=== PATIENT | male | born 1940 | race Caucasian/White ===

== ENCOUNTER 2018-04-02 13:06 | Inpatient (IN) | payer MEDICARE, OTHER ==
[~2018-04-02] VITALS: Ht 175.3 cm; Wt 93.6 kg
[2018-04-02 14:19] LABS: BASOPHILS # (AUTO) 0.1 X10'3 (0-0.2); BASOPHILS % (AUTO) 0.7 % (0-1); EOSINOPHILS # (AUTO) 0.2 X10'3 (0-0.9); EOSINOPHILS % (AUTO) 1.4 % (0-6); HEMATOCRIT 46.4 % (42.0-52.0); HEMOGLOBIN 15.2 g/dl (14.0-17.9); LYMPHOCYTES # (AUTO) 2.3 X10'3 (1.1-4.8); LYMPHOCYTES % (AUTO) 13.2 % (21-51); MEAN CORPUSCULAR HEMOGLOBIN 30.4 PG (27.0-31.0); MEAN CORPUSCULAR HGB CONC 32.7 % (33.0-36.5); MEAN CORPUSCULAR VOLUME 92.9 FL (78-98); MEAN PLATELET VOLUME 7.9 FL (7.4-10.4); MONOCYTES # (AUTO) 1.2 X10'3 (0-0.9); MONOCYTES % (AUTO) 6.8 % (2-12); NEUTROPHILS # (AUTO) 13.3 X10'3 (1.8-7.7); NEUTROPHILS % (AUTO) 77.9 % (42-75); PLATELET COUNT 329 X10'3 (140-440); RED CELL DISTRIBUTION WIDTH 14.5 % (11.5-14.5); WHITE BLOOD COUNT 17.1 X10'3 (4.5-11.0)
[2018-04-02 14:25] LABS: CLARITY,URINE CLEAR (Clear); COLOR,URINE YELLOW (Yellow); GLUCOSE, URINE NEGATIVE (Neg); KETONES,URINE NEGATIVE (Neg); LEUKOCYTE ESTERASE ,URINE TRACE (Neg); NITRITES, URINE NEGATIVE (Neg); OCCULT BLOOD,URINE NEGATIVE (Neg); PROTEIN,URINE NEGATIVE (Neg); UROBILINOGEN,URINE 0.2 E.U/dL (0.2-1.0)
[2018-04-02 14:28] LABS: UA COLLECTION TYPE CLN CATCH MIDSTREAM
[2018-04-02 14:41] LABS: MUCUS STRANDS NONE SEEN /LPF (Neg); SQUAMOUS EPITHELIAL CELL,UR NONE SEEN /LPF (FEW)
[2018-04-02 14:41] LABS: PARTIAL THROMBOPLASTIN TIME 27 SECONDS (22-32); PROTHROMBIN TIME 10.3 SECONDS (9.0-12.0)
[2018-04-02 14:42] LABS: BACTERIA,URINE NONE SEEN /HPF (Neg); RBC,URINE NONE SEEN /HPF (0-2); TRANSITIONAL EPI CELLS,URINE FEW /HPF; WBC,URINE 0-4 /HPF (0-4)
[2018-04-02 14:48] LABS: ALANINE AMINOTRANSFERASE 30 U/L (12-78); ALBUMIN 3.6 G/DL (3.4-5.0); ALBUMIN/GLOBULIN RATIO 0.9 (1.1-1.5); ALKALINE PHOSPHATASE 90 IU/L (46-116); ANION GAP 12 (8-16); ASPARTATE AMINO TRANSFERASE 9 U/L (10-37); BILIRUBIN,TOTAL 0.3 MG/DL (0.1-1.0); BLOOD UREA NITROGEN 21 MG/DL (7-18); BUN/CREATININE RATIO 19.1 (5.4-32.0); CALCIUM 9.1 MG/DL (8.5-10.1); CHLORIDE 100 MMOL/L (99-107); GLUCOSE 154 MG/DL (70-104); MAGNESIUM 1.9 MG/DL (1.5-2.4); POTASSIUM 4.3 MMOL/L (3.5-5.1); SODIUM 137 MMOL/L (135-145); TOTAL PROTEIN 7.7 G/DL (6.4-8.2); eGFR 65 ML/MIN
[2018-04-02] MEDS ORDERED: aspirin 81mg tab.chew PO ONE (14:50)
[2018-04-02] MEDS ORDERED: normal saline 1000ML IV soln IVB ONE (14:50)
[2018-04-02] MEDS ORDERED: diltiazem 5mg/ml 5ml inj. IV ONE ×2 (14:50→20:55)
[2018-04-02] MEDS ORDERED: BUDE10.2 INH (15:50)
[2018-04-02] MEDS ORDERED: OMEP20TA5 PO (15:50)
[2018-04-02] MEDS ORDERED: TIOT4MIS5 INH (15:50)
[2018-04-02] MEDS ORDERED: IPRA3AMP31 IH (15:57)
[2018-04-02] MEDS ORDERED: METF750T PO (15:59)
[2018-04-02] MEDS ORDERED: ASPI81TA52 PO (15:59)
[2018-04-02] MEDS ORDERED: KEN0.1O TP (16:00)
[2018-04-02] MEDS ORDERED: magnesium hydroxide 30ml (MOM) UD suspension PO PRN (16:00)
[2018-04-02] MEDS ORDERED: ondansetron/PF 4mg/2ml inj IV PRN (16:00)
[2018-04-02] MEDS ORDERED: furosemide 20MG tablet PO ONE (16:00)
[2018-04-02] MEDS ORDERED: diltiazem CD 120mg capsule (once-daily) PO SCH (16:00)
[2018-04-02] MEDS ORDERED: acetaminophen 325mg tablet PO PRN ×2 (16:00)
[2018-04-02] MEDS ORDERED: ipratropium/albuterol 3ml nebule NEB PRN (16:30)
[2018-04-02] MEDS ORDERED: triamcinolone acet 0.1% cream 15gm TP PRN (16:30)
[2018-04-02 17:55] VITALS: BP 141/86
--- NOTE | 2018-04-02 17:55 | NUR ---
Pt arrived to floor via gurney. Pt alert and oriented, accompanied by . Vitals taken and tele monitor placed. present and belongings placed in closet. MRSA swab taken and 2RN skin check completed.
--- NOTE | 2018-04-02 18:35 | NUR ---
Patient in room PCU 3013. I have received report from Chino PAYAN and had the opportunity to ask questions and assume patient care.
--- NOTE | 2018-04-02 18:37 | NUR ---
Problems reprioritized. Patient report given, questions answered & plan of care reviewed with Aubrie PAYAN. Pt stable at time of transfer. Addendum: 04/03/18 at 1204 by Chino Carl RN Patient in room [place] [id number]. I have received report from Aubrie PAYAN and had the opportunity to ask questions and assume patient care. Please disregard first portion of the note stating that patient report was given, questions answered, etc. I received report on this patient from Aubrie PAYAN as she was the off-going RN and I was the oncoming RN.
[2018-04-02] MEDS ORDERED: non-formulary drug (Budesonide/Formoterol Fumarate (Symbicort 160-4.5 Mcg Inhaler) 2 PUFFS INH SCH (20:00)
--- NOTE | 2018-04-02 20:55 | NUR ---
MD Notification Called Dr. Mckenzie RE pt HR sustaining in the 140s. New orders received Cardizem IV 10 mg once. Will continue to monitor
[2018-04-02] MEDS: budesonide 0.5mg/2ml UD nebule IH SCH (20:59)
[2018-04-02] MEDS: ipratropium 0.5 MG/2.5ML nebule NEB SCH (20:59)
[2018-04-02] MEDS: albuterol 2.5 MG/3 ML nebule NEB SCH (20:59)
[2018-04-02 23:00] VITALS: BP 141/69
[2018-04-03] MEDS: temazepam 15mg capsule PO PRN (01:21)
[2018-04-03] MEDS: ipratropium 0.5 MG/2.5ML nebule NEB SCH ×4 (02:36→20:26)
[2018-04-03 02:40] LABS: BASOPHILS # (AUTO) 0.1 X10'3 (0-0.2); EOSINOPHILS # (AUTO) 0.2 X10'3 (0-0.9); EOSINOPHILS % (AUTO) 1.4 % (0-6); HEMATOCRIT 42.2 % (42.0-52.0); LYMPHOCYTES # (AUTO) 2.2 X10'3 (1.1-4.8); MEAN CORPUSCULAR HEMOGLOBIN 30.7 PG (27.0-31.0); MEAN CORPUSCULAR HGB CONC 33.3 % (33.0-36.5); MEAN CORPUSCULAR VOLUME 92.3 FL (78-98); MEAN PLATELET VOLUME 7.8 FL (7.4-10.4); MONOCYTES # (AUTO) 1.1 X10'3 (0-0.9); MONOCYTES % (AUTO) 7.1 % (2-12); NEUTROPHILS # (AUTO) 11.2 X10'3 (1.8-7.7); NEUTROPHILS % (AUTO) 75.5 % (42-75); PLATELET COUNT 306 X10'3 (140-440); RED BLOOD COUNT 4.57 X10'6 (4.70-6.10); WHITE BLOOD COUNT 14.8 X10'3 (4.5-11.0)
[2018-04-03 02:57] LABS: ALBUMIN 3.1 G/DL (3.4-5.0); ANION GAP 11 (8-16); BLOOD UREA NITROGEN 22 MG/DL (7-18); BUN/CREATININE RATIO 18.6 (5.4-32.0); CALCIUM 8.6 MG/DL (8.5-10.1); CHLORIDE 101 MMOL/L (99-107); CREATININE 1.18 MG/DL (0.60-1.10); GLUCOSE 186 MG/DL (70-104); POTASSIUM 3.9 MMOL/L (3.5-5.1); SODIUM 137 MMOL/L (135-145); TOTAL CARBON DIOXIDE 25.4 MMOL/L (24-32); eGFR 60 ML/MIN
[2018-04-03 03:00] VITALS: BP 121/74
--- NOTE | 2018-04-03 06:08 | NUR ---
Patient in room PCU 3013. I have received report from Aubrie PAYAN and had the opportunity to ask questions and assume patient care.
--- NOTE | 2018-04-03 06:38 | NUR ---
Problems reprioritized. Patient report given, questions answered & plan of care reviewed with Chino PAYAN.
[2018-04-03 07:00] VITALS: BP 135/100
[2018-04-03] MEDS: diltiazem CD 120mg capsule (once-daily) PO SCH ×2 (07:15→07:16)
[2018-04-03] MEDS: aspirin 81mg tablet.DR PO SCH (07:15)
[2018-04-03] MEDS: metFORMIN 500mg tablet PO SCH (07:16)
[2018-04-03] MEDS: pantoprazole 40mg Tablet.DR PO SCH (07:16)
[2018-04-03] MEDS ORDERED: aspirin 81mg tablet.DR PO SCH (08:00)
[2018-04-03] MEDS: budesonide 0.5mg/2ml UD nebule IH SCH ×2 (08:44→20:26)
[2018-04-03] MEDS: albuterol 2.5 MG/3 ML nebule NEB SCH ×4 (08:44→20:26)
[2018-04-03 11:00] VITALS: BP 133/85
[2018-04-03] MEDS: mag hydrox/Alum hydrox/simeth 30ml oral suspension PO PRN (12:33)
--- NOTE | 2018-04-03 13:12 | NUR ---
1100 SVN TX TRIAGED
--- NOTE | 2018-04-03 14:42 | NUR ---
Paged Dr. Pappas per patient and family request regarding their questions about the treatment plan. PAGER ID: [phone] MESSAGE: Chino Carl RN [phone] Robby Travis: Patient and family requesting to speak with you with questions regarding treatment plan. Thank you.
[2018-04-03 15:00] VITALS: BP 141/92
[2018-04-03] MEDS: metoprolol succinate 25mg (24-HOUR) SR. Tablet PO SCH (17:26)
--- NOTE | 2018-04-03 18:10 | NUR ---
Patient in room PCU 3013. I have received report from Eli anaya and had the opportunity to ask questions and assume patient care.
--- NOTE | 2018-04-03 18:10 | NUR ---
Problems reprioritized. Patient report given, questions answered & plan of care reviewed with Aubrie PAYAN.
[2018-04-03 19:00] VITALS: BP 134/71
[2018-04-04] MEDS: temazepam 15mg capsule PO PRN ×2 (00:15→00:55)
[2018-04-04] MEDS: mag hydrox/Alum hydrox/simeth 30ml oral suspension PO PRN (00:55)
[2018-04-04] MEDS: ipratropium 0.5 MG/2.5ML nebule NEB SCH ×2 (01:09→06:52)
[2018-04-04 03:00] VITALS: BP 110/73
--- NOTE | 2018-04-04 06:10 | NUR ---
Patient in room PCU 3013. I have received report from Aubrie PAYAN and had the opportunity to ask questions and assume patient care.
--- NOTE | 2018-04-04 06:31 | NUR ---
Problems reprioritized. Patient report given, questions answered & plan of care reviewed with Chino PAYAN.
[2018-04-04] MEDS: albuterol 2.5 MG/3 ML nebule NEB SCH ×2 (06:52→10:41)
[2018-04-04] MEDS: budesonide 0.5mg/2ml UD nebule IH SCH (06:52)
[2018-04-04 06:55] LABS: BASOPHILS # (AUTO) 0.1 X10'3 (0-0.2); BASOPHILS % (AUTO) 0.5 % (0-1); EOSINOPHILS # (AUTO) 0.3 X10'3 (0-0.9); EOSINOPHILS % (AUTO) 2.3 % (0-6); HEMATOCRIT 42.8 % (42.0-52.0); LYMPHOCYTES # (AUTO) 1.6 X10'3 (1.1-4.8); LYMPHOCYTES % (AUTO) 11.4 % (21-51); MEAN CORPUSCULAR HEMOGLOBIN 30.1 PG (27.0-31.0); MEAN CORPUSCULAR HGB CONC 32.7 % (33.0-36.5); MEAN CORPUSCULAR VOLUME 91.9 FL (78-98); MEAN PLATELET VOLUME 8.4 FL (7.4-10.4); MONOCYTES # (AUTO) 0.9 X10'3 (0-0.9); MONOCYTES % (AUTO) 6.3 % (2-12); NEUTROPHILS # (AUTO) 11.2 X10'3 (1.8-7.7); NEUTROPHILS % (AUTO) 79.5 % (42-75); PLATELET COUNT 293 X10'3 (140-440); RED BLOOD COUNT 4.66 X10'6 (4.70-6.10); RED CELL DISTRIBUTION WIDTH 13.8 % (11.5-14.5); WHITE BLOOD COUNT 14.1 X10'3 (4.5-11.0)
[2018-04-04] MEDS: metoprolol succinate 25mg (24-HOUR) SR. Tablet PO SCH (07:15)
[2018-04-04] MEDS: aspirin 81mg tablet.DR PO SCH (07:15)
[2018-04-04] MEDS: pantoprazole 40mg Tablet.DR PO SCH (07:15)
[2018-04-04] MEDS: diltiazem CD 120mg capsule (once-daily) PO SCH (07:15)
[2018-04-04] MEDS: metFORMIN 500mg tablet PO SCH (07:16)
[2018-04-04 07:21] LABS: ALBUMIN 3.2 G/DL (3.4-5.0); BLOOD UREA NITROGEN 22 MG/DL (7-18); BUN/CREATININE RATIO 18.6 (5.4-32.0); CALCIUM 8.8 MG/DL (8.5-10.1); CREATININE 1.18 MG/DL (0.60-1.10); GLUCOSE 165 MG/DL (70-104); TOTAL CARBON DIOXIDE 27.7 MMOL/L (24-32); eGFR 60 ML/MIN
[2018-04-04 09:06] LABS: ANION GAP 9 (8-16); CHLORIDE 99 MMOL/L (99-107); POTASSIUM 4.4 MMOL/L (3.5-5.1); SODIUM 136 MMOL/L (135-145)
[2018-04-04] MEDS ORDERED: METO-395 PO (10:29)
[2018-04-04] MEDS ORDERED: CARCD120C PO (10:29)
--- NOTE | 2018-04-04 11:45 | NUR ---
Patient discharged. Patient discharged at 1145. Patient accompanied by and refused wheelchair. Patient ambulated independently out of facility into private vehicle. IV removed prior to discharge, catheter intact with no significant bleeding or issues. Discharge instructions provided to patient by Chino PAYAN. Patient verbalized understanding of new medications and follow up appointment to be scheduled within two weeks with equity sales assistant. Patient took all belongings home, independently dressed himself, and telemetry leads were removed. Telemetry box returned to appropriate bin. All questions answered and concerns addressed.
== END 2018-04-04 11:45 | disposition home or self-care (01) | DRG 308 ==
LOC: ER 13:06 → ED HOLD 15:58 → EDBEDREQ 16:43 → PCU 3S 17:56
PROVIDERS: ADMIT Hospitalist; ATTEND Internal Medicine
DX: I48.91 Unspecified atrial fibrillation (principal); I50.31 Acute diastolic (congestive) heart failure; E11.9 Type 2 diabetes mellitus without complications; G47.33 Obstructive sleep apnea (adult) (pediatric); I51.7 Cardiomegaly; M48.00 Spinal stenosis, site unspecified; Z66 Do not resuscitate; I08.3 Combined rheumatic disorders of mitral, aortic and tricuspid valves; I65.29 Occlusion and stenosis of unspecified carotid artery; J44.9 Chronic obstructive pulmonary disease, unspecified; R09.89 Other specified symptoms and signs involving the circulatory and respiratory systems; Z88.6 Allergy status to analgesic agent; Z88.2 Allergy status to sulfonamides; Z88.1 Allergy status to other antibiotic agents; Z88.8 Allergy status to other drugs, medicaments and biological substances; Z79.82 Long term (current) use of aspirin; Z79.84 Long term (current) use of oral hypoglycemic drugs; Z79.899 Other long term (current) drug therapy; Z86.73 Personal history of transient ischemic attack (TIA), and cerebral infarction without residual deficits; Z87.891 Personal history of nicotine dependence
CPT/HCPCS: 36415; 71045; 80048; 80053; 81001; 83605; 83735; 83880; 84145; 84443; 84484; 85025; 85610; 85730; 87040; 87070; 93005; 93306; 94640; 94760; 96361; 96374; 97116; 97161; 99285; G0378; J3490; J7626

== ENCOUNTER 2018-04-28 15:11 | Inpatient (IN) | payer MEDICARE, OTHER ==
[~2018-04-28] VITALS: Ht 175.3 cm; Wt 92.5 kg
[~2018-04-28 15:11] MED LIST: ASPI81TA52 PO; BUDE10.2 INH; CARCD120C PO; IPRA3AMP31 IH; KEN0.1O TP; METF750T PO; METO-395 PO; OMEP20TA5 PO; TIOT4MIS5 INH
[2018-04-28] MEDS ORDERED: furosemide 40mg/4ml inj IV ONE (15:55)
[2018-04-28 16:16] LABS: BASOPHILS # (AUTO) 0.1 X10'3 (0-0.2); BASOPHILS % (AUTO) 0.8 % (0-1); EOSINOPHILS # (AUTO) 0.2 X10'3 (0-0.9); EOSINOPHILS % (AUTO) 1.4 % (0-6); HEMATOCRIT 39.5 % (42.0-52.0); HEMOGLOBIN 12.9 g/dl (14.0-17.9); LYMPHOCYTES # (AUTO) 1.6 X10'3 (1.1-4.8); LYMPHOCYTES % (AUTO) 9.9 % (21-51); MEAN CORPUSCULAR HEMOGLOBIN 30.1 PG (27.0-31.0); MEAN CORPUSCULAR HGB CONC 32.6 % (33.0-36.5); MEAN CORPUSCULAR VOLUME 92.5 FL (78-98); MEAN PLATELET VOLUME 7.7 FL (7.4-10.4); MONOCYTES # (AUTO) 1.3 X10'3 (0-0.9); MONOCYTES % (AUTO) 7.7 % (2-12); NEUTROPHILS % (AUTO) 80.2 % (42-75); PLATELET COUNT 492 X10'3 (140-440); RED BLOOD COUNT 4.28 X10'6 (4.70-6.10); RED CELL DISTRIBUTION WIDTH 13.8 % (11.5-14.5); WHITE BLOOD COUNT 16.3 X10'3 (4.5-11.0)
[2018-04-28 16:29] LABS: ALANINE AMINOTRANSFERASE 26 U/L (12-78); ALBUMIN 2.7 G/DL (3.4-5.0); ALBUMIN/GLOBULIN RATIO 0.7 (1.1-1.5); ALKALINE PHOSPHATASE 93 IU/L (46-116); ANION GAP 7 (8-16); ASPARTATE AMINO TRANSFERASE 9 U/L (10-37); BILIRUBIN,TOTAL 0.3 MG/DL (0.1-1.0); BLOOD UREA NITROGEN 26 MG/DL (7-18); BUN/CREATININE RATIO 21.7 (5.4-32.0); CALCIUM 8.7 MG/DL (8.5-10.1); CHLORIDE 97 MMOL/L (99-107); GLUCOSE 335 MG/DL (70-104); POTASSIUM 4.6 MMOL/L (3.5-5.1); SODIUM 131 MMOL/L (135-145); TOTAL CARBON DIOXIDE 26.8 MMOL/L (24-32); TOTAL PROTEIN 6.7 G/DL (6.4-8.2); eGFR 59 ML/MIN
[2018-04-28 16:48] LABS: TOTAL CELLS COUNTED 100
[2018-04-28 16:50] LABS: PLATELET ESTIMATE INCREASED
[2018-04-28 17:13] LABS: CLARITY,URINE CLEAR (Clear); COLOR,URINE YELLOW (Yellow); GLUCOSE, URINE >=1000 mg/dl (Neg); KETONES,URINE NEGATIVE (Neg); LEUKOCYTE ESTERASE ,URINE NEGATIVE (Neg); NITRITES, URINE NEGATIVE (Neg); OCCULT BLOOD,URINE NEGATIVE (Neg); PROTEIN,URINE NEGATIVE (Neg); UROBILINOGEN,URINE 0.2 E.U/dL (0.2-1.0)
[2018-04-28] MEDS ORDERED: ondansetron/PF 4mg/2ml inj IV PRN (17:15)
[2018-04-28] MEDS ORDERED: potassium Cl 20 mEq SR tablet PO PRN ×2 (17:15)
[2018-04-28] MEDS ORDERED: potassium Cl 40MEQ/NS 500ml 500 ML IV PRN ×2 (17:15)
[2018-04-28] MEDS ORDERED: acetaminophen 325mg tablet PO PRN (17:15)
[2018-04-28] MEDS ORDERED: bisacodyl 10mg suppository rectal RC PRN (17:15)
[2018-04-28] MEDS ORDERED: magnesium 4gm in 100ml NS 100 ML IV PRN (17:15)
[2018-04-28] MEDS ORDERED: magnesium 2GM in 50ml NS 50 ML IV PRN (17:15)
[2018-04-28] MEDS ORDERED: magnesium hydroxide 30ml (MOM) UD suspension PO PRN (17:15)
[2018-04-28] MEDS ORDERED: mag hydrox/Alum hydrox/simeth 30ml oral suspension PO PRN (17:15)
[2018-04-28] MEDS ORDERED: magnesium Cl slow-release 64mg tablet PO PRN (17:15)
--- NOTE | 2018-04-28 17:19 | NUR ---
HEART RATE 120/130'S. DR ALEXIS AWARE. NO NEW ORDERS RECEIVED.
[2018-04-28 17:21] LABS: UA COLLECTION TYPE VOIDED
[2018-04-28] MEDS ORDERED: diltiazem-D5W 125mg/125ml 125 ML IV PRN (17:21)
[2018-04-28 17:23] LABS: BACTERIA,URINE FEW /HPF (Neg); MUCUS STRANDS NONE SEEN /LPF (Neg); RBC,URINE 0-2 /HPF (0-2); SQUAMOUS EPITHELIAL CELL,UR FEW /LPF (FEW); WBC,URINE 0-4 /HPF (0-4)
[2018-04-28] MEDS ORDERED: pantoprazole 40mg Tablet.DR PO SCH (17:25)
[2018-04-28] MEDS ORDERED: aspirin 325mg tablet, delayed-release (Ecotrin) PO SCH (17:25)
[2018-04-28] MEDS: CefTRIAXone/D5W-Rocephin 1gm 50 ML IV SCH (17:26)
[2018-04-28] MEDS ORDERED: DILT120C51 PO (17:34)
[2018-04-28] MEDS ORDERED: ASPI-10 PO (17:41)
[2018-04-28] MEDS ORDERED: METO-395 PO (17:43)
[2018-04-28] MEDS: methylPREDNISolone sod succ 125mg/2ml vial IV SCH (17:45)
[2018-04-28] MEDS ORDERED: PRED10TA23 PO (17:46)
[2018-04-28] MEDS ORDERED: DOXY-1 PO (17:48)
[2018-04-28] MEDS ORDERED: FLUT16SP2 BOTHNARES (17:58)
--- NOTE | 2018-04-28 18:00 | NUR ---
Patient in room PCU 3014. I have received report from ER Nurse and had the opportunity to ask questions and assume patient care.
[2018-04-28] MEDS ORDERED: MESSAGE TO PHARMACY PO ONE (18:20)
[2018-04-28] MEDS ORDERED: dextrose ORAL solution 15 GM/59 ML bottle PO PRN (18:20)
[2018-04-28] MEDS ORDERED: glucagon, human recombinant 1mg kit SUBCUT PRN (18:20)
[2018-04-28] MEDS ORDERED: dextrose 50%-water 50ml dispensing syringe IV PRN ×2 (18:20)
[2018-04-28 18:46] LABS: HEMOGLOBIN A1C 8.5 % (4.5-6.2)
[2018-04-28 19:00] VITALS: BP 143/92
[2018-04-28] MEDS ORDERED: albuterol 2.5 MG/3 ML nebule NEB SCH (19:00)
[2018-04-28] MEDS ORDERED: ipratropium 0.5 MG/2.5ML nebule IH SCH (19:00)
[2018-04-28] MEDS ORDERED: ipratropium/albuterol 3ml nebule NEB SCH (19:00)
[2018-04-28] MEDS: fluticasone nasal spray 16GM bottle NS SCH (20:00)
[2018-04-28] MEDS ORDERED: non-formulary drug (Budesonide/Formoterol Fumarate (Symbicort 160-4.5 Mcg Inhaler) 2 PUFFS INH SCH (20:00)
[2018-04-28] MEDS ORDERED: non-formulary drug (Fluticasone Propionate (Flonase) 2 SPRAYS) BOTHNARES SCH (20:00)
[2018-04-28 21:00] VITALS: BP 132/98
[2018-04-28] MEDS ORDERED: ipratropium/albuterol 3ml nebule IH SCH (21:00)
[2018-04-28] MEDS: insulin Lispro (HumaLOG) vial - multi-dose SQ SCH (21:11)
[2018-04-28] MEDS: heparin, porcine 5000 units/ml vial SQ SCH (21:13)
[2018-04-28] MEDS: metoprolol succinate 25mg (24-HOUR) SR. Tablet PO SCH (21:13)
[2018-04-28] MEDS: ipratropium/albuterol 3ml nebule IH SCH (22:12)
[2018-04-28] MEDS: budesonide 0.5mg/2ml UD nebule IH SCH (22:12)
[2018-04-28 23:00] VITALS: BP 126/88
[2018-04-29] VITALS (8 sets, daily range): BP systolic 105–135; BP diastolic 58–92
[2018-04-29] MEDS: ipratropium/albuterol 3ml nebule IH SCH ×4 (04:00→20:05)
[2018-04-29 05:58] LABS: BASOPHILS # (AUTO) 0.1 X10'3 (0-0.2); BASOPHILS % (AUTO) 0.9 % (0-1); EOSINOPHILS % (AUTO) 0 % (0-6); LYMPHOCYTES # (AUTO) 1.2 X10'3 (1.1-4.8); LYMPHOCYTES % (AUTO) 7.9 % (21-51); MEAN CORPUSCULAR HEMOGLOBIN 30.5 PG (27.0-31.0); MEAN CORPUSCULAR HGB CONC 33.3 % (33.0-36.5); MEAN CORPUSCULAR VOLUME 91.7 FL (78-98); MEAN PLATELET VOLUME 8.1 FL (7.4-10.4); MONOCYTES # (AUTO) 0.2 X10'3 (0-0.9); MONOCYTES % (AUTO) 1.4 % (2-12); NEUTROPHILS # (AUTO) 13.3 X10'3 (1.8-7.7); NEUTROPHILS % (AUTO) 89.8 % (42-75); PLATELET COUNT 468 X10'3 (140-440); RED BLOOD COUNT 4.25 X10'6 (4.70-6.10); RED CELL DISTRIBUTION WIDTH 13.6 % (11.5-14.5); WHITE BLOOD COUNT 14.8 X10'3 (4.5-11.0)
[2018-04-29 06:09] LABS: ALANINE AMINOTRANSFERASE 26 U/L (12-78); ALBUMIN 2.5 G/DL (3.4-5.0); ALBUMIN/GLOBULIN RATIO 0.6 (1.1-1.5); ALKALINE PHOSPHATASE 93 IU/L (46-116); ANION GAP 11 (8-16); ASPARTATE AMINO TRANSFERASE 11 U/L (10-37); BILIRUBIN,TOTAL 0.3 MG/DL (0.1-1.0); BLOOD UREA NITROGEN 25 MG/DL (7-18); BUN/CREATININE RATIO 20.8 (5.4-32.0); CALCIUM 8.9 MG/DL (8.5-10.1); CHLORIDE 92 MMOL/L (99-107); GLUCOSE 406 MG/DL (70-104); POTASSIUM 4.6 MMOL/L (3.5-5.1); SODIUM 129 MMOL/L (135-145); TOTAL CARBON DIOXIDE 26.3 MMOL/L (24-32); TOTAL PROTEIN 6.6 G/DL (6.4-8.2); eGFR 59 ML/MIN
[2018-04-29 06:12] LABS: CHOL/HDL RATIO 3.6 (0.00-4.99); CHOLESTEROL 163 MG/DL (0-200); HDL CHOLESTEROL 45 MG/DL (35-60); LDL CHOLESTEROL 104 MG/DL (50-100); MAGNESIUM 1.7 MG/DL (1.5-2.4); TRIGLYCERIDES 63 MG/DL (20-135)
--- NOTE | 2018-04-29 06:15 | NUR ---
Problems reprioritized. Patient report given, questions answered & plan of care reviewed with ORA Johnston.
--- NOTE | 2018-04-29 06:31 | NUR ---
Patient in room PCU 3014. I have received report from Ana PAYAN and had the opportunity to ask questions and assume patient care. Will continue to monitor patient.
[2018-04-29] MEDS ORDERED: pantoprazole 40mg Tablet.DR PO SCH (07:30)
[2018-04-29] MEDS ORDERED: non-formulary drug (Omeprazole 2 TAB) PO SCH (08:00)
[2018-04-29] MEDS ORDERED: non-formulary drug (Tiotropium Bromide (Spiriva Respimat) 2 PUFF) INH SCH (08:00)
[2018-04-29] MEDS: K and/or MAG REPLACEMENT MC SCH (08:00)
[2018-04-29] MEDS: budesonide 0.5mg/2ml UD nebule IH SCH ×2 (08:53→20:05)
[2018-04-29] MEDS: fluticasone nasal spray 16GM bottle NS SCH ×2 (09:05→20:42)
[2018-04-29] MEDS: heparin, porcine 5000 units/ml vial SQ SCH ×2 (09:06→20:43)
[2018-04-29] MEDS: aspirin 325mg tablet PO SCH (09:11)
[2018-04-29] MEDS: furosemide 20 MG/2 ML vial IV SCH ×3 (09:12→20:50)
[2018-04-29] MEDS: CefTRIAXone/D5W-Rocephin 1gm 50 ML IV SCH (09:12)
[2018-04-29] MEDS: methylPREDNISolone sod succ 125mg/2ml vial IV SCH ×3 (09:13→20:41)
[2018-04-29] MEDS: insulin Lispro (HumaLOG) vial - multi-dose SQ SCH ×4 (09:25→20:57)
[2018-04-29] MEDS: insulin glargine (Lantus) pen - multi-dose SQ SCH (11:13)
--- NOTE | 2018-04-29 11:37 | NUR ---
DM Consult: Pt admit w/ recurrent PNA, new onset CHF w/ hx T2DM A1C 8.5 and COPD. Pt takes prednisone at home and reports normally borderline low GLU his whole life but since starting steroids has had very high GLU. Takes metformin at home. GLU 379 today only on humalog and no long-acting; [employer] who shares ordered Lantus 10 units AM today for RN to provide. RD provided pt/family w/ written DM ed and RD contact information; declined verbal ed at this time. PO 25% current heart healthy/carb controlled diet. Will continue to monitor. Rec: 1. continue current carb controlled/heart healthy diet 2. long-acting GLU coverage per MD 3. wt per rx Addendum: 04/29/18 at [address] Amended: Links added.
--- NOTE | 2018-04-29 13:02 | NUR ---
Paged Dr. Day PAGER ID: [phone] MESSAGE: Patient in rm 3014A, Angy walked 150 feet with no SOB or Chest pain, HR went up to 125. Thanks, Holly [phone]
[2018-04-29] MEDS: diltiazem CD 180mg cap (once-daily) PO SCH (13:46)
--- NOTE | 2018-04-29 15:57 | NUR ---
Paged Dr. Day PAGER ID: [phone] MESSAGE: Angy Rajan vital signs 1hour post Cardizem gtt discontinued are HR 107, BP 121/77. Thanks, Holly [phone]
--- NOTE | 2018-04-29 18:20 | NUR ---
Problems reprioritized. Patient report given, questions answered & plan of care reviewed with Elena PAYAN. Bedside report complete, patient stable at transfer of care.
--- NOTE | 2018-04-29 18:21 | NUR ---
[place] documentation: I have reviewed and agree with all interventions, assessments performed and documented by Holly PAYAN. [place] Medication Administration: For this medication-pass time frame, all medication were reviewed, dispensed, administered and documented per hospital policy by Holly PAYAN.
--- NOTE | 2018-04-29 18:25 | NUR ---
Patient in room PCU 3014. I have received report from WIL PAYAN and had the opportunity to ask questions and assume patient care.
[2018-04-29] MEDS: metoprolol succinate 25mg (24-HOUR) SR. Tablet PO SCH (20:46)
[2018-04-30] VITALS (7 sets, daily range): BP systolic 102–132; BP diastolic 54–84
[2018-04-30] MEDS: ipratropium/albuterol 3ml nebule IH SCH ×3 (02:40→21:13)
[2018-04-30 05:11] LABS: ALANINE AMINOTRANSFERASE 29 U/L (12-78); ALBUMIN 2.6 G/DL (3.4-5.0); ALBUMIN/GLOBULIN RATIO 0.6 (1.1-1.5); ALKALINE PHOSPHATASE 90 IU/L (46-116); ANION GAP 10 (8-16); ASPARTATE AMINO TRANSFERASE 10 U/L (10-37); BILIRUBIN,TOTAL 0.3 MG/DL (0.1-1.0); BLOOD UREA NITROGEN 36 MG/DL (7-18); BUN/CREATININE RATIO 22.5 (5.4-32.0); CALCIUM 8.8 MG/DL (8.5-10.1); CHLORIDE 91 MMOL/L (99-107); GLUCOSE 270 MG/DL (70-104); MAGNESIUM 1.8 MG/DL (1.5-2.4); POTASSIUM 4.5 MMOL/L (3.5-5.1); SODIUM 130 MMOL/L (135-145); TOTAL CARBON DIOXIDE 28.6 MMOL/L (24-32); TOTAL PROTEIN 6.7 G/DL (6.4-8.2); eGFR 42 ML/MIN
--- NOTE | 2018-04-30 06:15 | NUR ---
Problems reprioritized. Patient report given, questions answered & plan of care reviewed with Adelina and Jonathan RNs
--- NOTE | 2018-04-30 06:16 | NUR ---
pt rested throughout the night, no sleep, read his book. up to void a few times
--- NOTE | 2018-04-30 06:16 | NUR ---
Patient in room PCU 3014. I have received report from ORA Parker and had the opportunity to ask questions and assume patient care.
[2018-04-30] MEDS: diltiazem CD 180mg cap (once-daily) PO SCH (07:55)
[2018-04-30] MEDS: CefTRIAXone/D5W-Rocephin 1gm 50 ML IV SCH (07:55)
[2018-04-30] MEDS: furosemide 20 MG/2 ML vial IV SCH (07:56)
[2018-04-30] MEDS: methylPREDNISolone sod succ 125mg/2ml vial IV SCH ×2 (07:56→20:20)
[2018-04-30] MEDS: heparin, porcine 5000 units/ml vial SQ SCH ×2 (07:58→20:21)
[2018-04-30] MEDS: aspirin 325mg tablet PO SCH (07:59)
[2018-04-30] MEDS: K and/or MAG REPLACEMENT MC SCH (08:00)
[2018-04-30] MEDS: fluticasone nasal spray 16GM bottle NS SCH ×2 (08:30→20:22)
[2018-04-30] MEDS: insulin glargine (Lantus) pen - multi-dose SQ SCH ×2 (08:33→22:04)
[2018-04-30] MEDS: budesonide 0.5mg/2ml UD nebule IH SCH ×2 (09:00→21:12)
[2018-04-30] MEDS: metoprolol succinate 25mg (24-HOUR) SR. Tablet PO SCH ×2 (13:04→20:21)
[2018-04-30] MEDS: insulin Lispro (HumaLOG) vial - multi-dose SQ SCH ×2 (13:15→22:22)
--- NOTE | 2018-04-30 18:41 | NUR ---
Problems reprioritized. Patient report given, questions answered & plan of care reviewed with ORA Meredith.
[2018-04-30] MEDS: lactobacillus rhamnosus 10,000 MMU CELLS/CAPSULE PO SCH (20:21)
[2018-05-01 02:00] VITALS: BP 122/80
[2018-05-01] MEDS: ipratropium/albuterol 3ml nebule IH SCH ×4 (02:39→20:12)
[2018-05-01 05:54] LABS: BASOPHILS % (AUTO) 0.1 % (0-1); EOSINOPHILS % (AUTO) 0 % (0-6); HEMATOCRIT 38.9 % (42.0-52.0); HEMOGLOBIN 12.9 g/dl (14.0-17.9); LYMPHOCYTES # (AUTO) 1.3 X10'3 (1.1-4.8); LYMPHOCYTES % (AUTO) 6.1 % (21-51); MEAN CORPUSCULAR HEMOGLOBIN 30.3 PG (27.0-31.0); MEAN CORPUSCULAR HGB CONC 33.2 % (33.0-36.5); MEAN CORPUSCULAR VOLUME 91.1 FL (78-98); MEAN PLATELET VOLUME 7.7 FL (7.4-10.4); MONOCYTES # (AUTO) 0.8 X10'3 (0-0.9); MONOCYTES % (AUTO) 3.9 % (2-12); NEUTROPHILS # (AUTO) 19.1 X10'3 (1.8-7.7); NEUTROPHILS % (AUTO) 89.9 % (42-75); PLATELET COUNT 488 X10'3 (140-440); RED BLOOD COUNT 4.27 X10'6 (4.70-6.10); WHITE BLOOD COUNT 21.2 X10'3 (4.5-11.0)
[2018-05-01 06:14] LABS: ALANINE AMINOTRANSFERASE 41 U/L (12-78); ALBUMIN 2.4 G/DL (3.4-5.0); ALBUMIN/GLOBULIN RATIO 0.6 (1.1-1.5); ALKALINE PHOSPHATASE 79 IU/L (46-116); ANION GAP 8 (8-16); ASPARTATE AMINO TRANSFERASE 15 U/L (10-37); BILIRUBIN,TOTAL 0.3 MG/DL (0.1-1.0); BLOOD UREA NITROGEN 40 MG/DL (7-18); BUN/CREATININE RATIO 32.8 (5.4-32.0); CALCIUM 8.3 MG/DL (8.5-10.1); CHLORIDE 92 MMOL/L (99-107); CREATININE 1.22 MG/DL (0.60-1.10); GLUCOSE 122 MG/DL (70-104); MAGNESIUM 1.9 MG/DL (1.5-2.4); POTASSIUM 3.8 MMOL/L (3.5-5.1); SODIUM 128 MMOL/L (135-145); TOTAL CARBON DIOXIDE 28.5 MMOL/L (24-32); TOTAL PROTEIN 6.1 G/DL (6.4-8.2); eGFR 58 ML/MIN
--- NOTE | 2018-05-01 06:26 | NUR ---
Patient in room PCU 3014. I have received report from Masoud PAYAN and had the opportunity to ask questions and assume patient care.
[2018-05-01 07:00] VITALS: BP 125/69
[2018-05-01] MEDS: K and/or MAG REPLACEMENT MC SCH (08:00)
[2018-05-01] MEDS: fluticasone nasal spray 16GM bottle NS SCH ×2 (08:14→20:43)
[2018-05-01] MEDS: lactobacillus rhamnosus 10,000 MMU CELLS/CAPSULE PO SCH ×2 (08:15→20:44)
[2018-05-01] MEDS: aspirin 325mg tablet PO SCH (08:15)
[2018-05-01] MEDS: diltiazem CD 180mg cap (once-daily) PO SCH (08:16)
[2018-05-01] MEDS: metoprolol succinate 25mg (24-HOUR) SR. Tablet PO SCH ×2 (08:16→20:43)
[2018-05-01] MEDS: furosemide 20 MG/2 ML vial IV SCH (08:17)
[2018-05-01] MEDS: methylPREDNISolone sod succ 125mg/2ml vial IV SCH (08:17)
[2018-05-01] MEDS: heparin, porcine 5000 units/ml vial SQ SCH ×2 (08:19→20:44)
[2018-05-01] MEDS: insulin glargine (Lantus) pen - multi-dose SQ SCH ×2 (08:19→20:56)
[2018-05-01] MEDS: CefTRIAXone/D5W-Rocephin 1gm 50 ML IV SCH (08:20)
[2018-05-01] MEDS: insulin Lispro (HumaLOG) vial - multi-dose SQ SCH ×3 (08:23→18:29)
[2018-05-01] MEDS: budesonide 0.5mg/2ml UD nebule IH SCH ×2 (09:48→20:12)
[2018-05-01 11:00] VITALS: BP 126/70
[2018-05-01] MEDS: prednisone 10mg tablet PO SCH (13:36)
--- NOTE | 2018-05-01 14:45 | NUR ---
[place] documentation: I have reviewed and agree with all interventions, assessments performed and documented by ORA Barrera.
--- NOTE | 2018-05-01 14:47 | NUR ---
[place] Medication Administration: For this medication-pass time frame, all medication were reviewed, dispensed, administered and documented per hospital policy by ORA Barrera.
[2018-05-01 15:00] VITALS: BP 113/72
--- NOTE | 2018-05-01 18:09 | NUR ---
Problems reprioritized. Patient report given, questions answered & plan of care reviewed with Alka PAYAN.
[2018-05-01 19:00] VITALS: BP 113/77
[2018-05-01 23:00] VITALS: BP 124/59
[2018-05-02] MEDS: ipratropium/albuterol 3ml nebule IH SCH ×4 (02:26→21:21)
[2018-05-02 03:00] VITALS: BP 123/74
--- NOTE | 2018-05-02 05:58 | NUR ---
Problems reprioritized. Patient report given, questions answered & plan of care reviewed with Alonso PAYAN.
[2018-05-02 06:00] VITALS: BP 118/98
--- NOTE | 2018-05-02 06:05 | NUR ---
Patient in room PCU 3014. I have received report from ORA Rucker and had the opportunity to ask questions and assume patient care.
[2018-05-02 06:08] LABS: BASOPHILS # (AUTO) 0.1 X10'3 (0-0.2); BASOPHILS % (AUTO) 0.4 % (0-1); EOSINOPHILS # (AUTO) 0.3 X10'3 (0-0.9); EOSINOPHILS % (AUTO) 1.2 % (0-6); HEMATOCRIT 41.5 % (42.0-52.0); HEMOGLOBIN 13.9 g/dl (14.0-17.9); LYMPHOCYTES # (AUTO) 1.5 X10'3 (1.1-4.8); LYMPHOCYTES % (AUTO) 6.2 % (21-51); MEAN CORPUSCULAR HEMOGLOBIN 30.4 PG (27.0-31.0); MEAN CORPUSCULAR HGB CONC 33.4 % (33.0-36.5); MEAN CORPUSCULAR VOLUME 91.1 FL (78-98); MONOCYTES # (AUTO) 0.8 X10'3 (0-0.9); MONOCYTES % (AUTO) 3.4 % (2-12); NEUTROPHILS % (AUTO) 88.8 % (42-75); PLATELET COUNT 438 X10'3 (140-440); RED BLOOD COUNT 4.55 X10'6 (4.70-6.10); RED CELL DISTRIBUTION WIDTH 13.6 % (11.5-14.5); WHITE BLOOD COUNT 23.7 X10'3 (4.5-11.0)
[2018-05-02 06:25] LABS: ALANINE AMINOTRANSFERASE 70 U/L (12-78); ALBUMIN 2.6 G/DL (3.4-5.0); ALBUMIN/GLOBULIN RATIO 0.7 (1.1-1.5); ALKALINE PHOSPHATASE 83 IU/L (46-116); ANION GAP 9 (8-16); ASPARTATE AMINO TRANSFERASE 22 U/L (10-37); BILIRUBIN,TOTAL 0.4 MG/DL (0.1-1.0); BLOOD UREA NITROGEN 41 MG/DL (7-18); BUN/CREATININE RATIO 29.5 (5.4-32.0); CALCIUM 8.3 MG/DL (8.5-10.1); CHLORIDE 91 MMOL/L (99-107); CREATININE 1.39 MG/DL (0.60-1.10); GLUCOSE 239 MG/DL (70-104); POTASSIUM 3.9 MMOL/L (3.5-5.1); SODIUM 128 MMOL/L (135-145); TOTAL PROTEIN 6.4 G/DL (6.4-8.2); eGFR 50 ML/MIN
[2018-05-02] MEDS: fluticasone nasal spray 16GM bottle NS SCH ×2 (07:39→20:10)
[2018-05-02] MEDS: lactobacillus rhamnosus 10,000 MMU CELLS/CAPSULE PO SCH ×2 (07:39→20:09)
[2018-05-02] MEDS: furosemide 20 MG/2 ML vial IV SCH (07:39)
[2018-05-02] MEDS: metoprolol succinate 25mg (24-HOUR) SR. Tablet PO SCH ×2 (07:39→20:10)
[2018-05-02] MEDS: diltiazem CD 120mg capsule (once-daily) PO SCH (07:39)
[2018-05-02] MEDS: CefTRIAXone/D5W-Rocephin 1gm 50 ML IV SCH (07:40)
[2018-05-02] MEDS: heparin, porcine 5000 units/ml vial SQ SCH ×2 (07:40→20:11)
[2018-05-02] MEDS: K and/or MAG REPLACEMENT MC SCH (07:54)
[2018-05-02] MEDS: prednisone 10mg tablet PO SCH (07:57)
[2018-05-02] MEDS: aspirin 325mg tablet PO SCH (07:57)
[2018-05-02] MEDS: insulin glargine (Lantus) pen - multi-dose SQ SCH ×2 (08:47→20:21)
[2018-05-02] MEDS: insulin Lispro (HumaLOG) vial - multi-dose SQ SCH ×3 (08:51→20:20)
[2018-05-02] MEDS: budesonide 0.5mg/2ml UD nebule IH SCH ×2 (09:17→21:20)
[2018-05-02 11:00] VITALS: BP 106/68
[2018-05-02] MEDS: dextrose ORAL solution 15 GM/59 ML bottle PO PRN (12:10)
--- NOTE | 2018-05-02 14:11 | NUR ---
PAGER ID: [phone] MESSAGE: [id number] Robby Travis: Walked half lap around the kuhn, Oxygen sated at 95% on RA. ORA Gupta Ext [phone]
[2018-05-02 15:00] VITALS: BP 111/74
--- NOTE | 2018-05-02 18:06 | NUR ---
Problems reprioritized. Patient report given, questions answered & plan of care reviewed with ORA Rucker.
[2018-05-02 19:00] VITALS: BP 122/80
[2018-05-02 23:00] VITALS: BP 99/74
[2018-05-03 03:00] VITALS: BP 110/63
[2018-05-03] MEDS: ipratropium/albuterol 3ml nebule IH SCH ×4 (03:15→20:17)
--- NOTE | 2018-05-03 06:21 | NUR ---
Problems reprioritized. Patient report given, questions answered & plan of care reviewed with Beulah PAYAN.
[2018-05-03 07:06] VITALS: BP 104/72
[2018-05-03 07:06] LABS: BASOPHILS # (AUTO) 0.1 X10'3 (0-0.2); BASOPHILS % (AUTO) 0.3 % (0-1); EOSINOPHILS % (AUTO) 0.2 % (0-6); HEMATOCRIT 42.4 % (42.0-52.0); HEMOGLOBIN 14.1 g/dl (14.0-17.9); LYMPHOCYTES # (AUTO) 2.3 X10'3 (1.1-4.8); LYMPHOCYTES % (AUTO) 9.7 % (21-51); MEAN CORPUSCULAR HEMOGLOBIN 30.4 PG (27.0-31.0); MEAN CORPUSCULAR HGB CONC 33.3 % (33.0-36.5); MEAN CORPUSCULAR VOLUME 91.4 FL (78-98); MEAN PLATELET VOLUME 8.3 FL (7.4-10.4); MONOCYTES # (AUTO) 1.1 X10'3 (0-0.9); MONOCYTES % (AUTO) 4.6 % (2-12); NEUTROPHILS # (AUTO) 19.7 X10'3 (1.8-7.7); NEUTROPHILS % (AUTO) 85.2 % (42-75); PLATELET COUNT 413 X10'3 (140-440); RED BLOOD COUNT 4.64 X10'6 (4.70-6.10); RED CELL DISTRIBUTION WIDTH 13.7 % (11.5-14.5); WHITE BLOOD COUNT 23.2 X10'3 (4.5-11.0)
--- NOTE | 2018-05-03 07:22 | NUR ---
Patient in room PCU 3014. I have received report from Alka PAYAN and had the opportunity to ask questions and assume patient care.
[2018-05-03 07:27] LABS: ALANINE AMINOTRANSFERASE 69 U/L (12-78); ALBUMIN 2.7 G/DL (3.4-5.0); ALBUMIN/GLOBULIN RATIO 0.7 (1.1-1.5); ALKALINE PHOSPHATASE 81 IU/L (46-116); ANION GAP 9 (8-16); ASPARTATE AMINO TRANSFERASE 20 U/L (10-37); BILIRUBIN,TOTAL 0.4 MG/DL (0.1-1.0); BLOOD UREA NITROGEN 37 MG/DL (7-18); BUN/CREATININE RATIO 30.6 (5.4-32.0); CALCIUM 8.4 MG/DL (8.5-10.1); CHLORIDE 91 MMOL/L (99-107); CREATININE 1.21 MG/DL (0.60-1.10); GLUCOSE 158 MG/DL (70-104); MAGNESIUM 2.2 MG/DL (1.5-2.4); POTASSIUM 3.7 MMOL/L (3.5-5.1); SODIUM 127 MMOL/L (135-145); TOTAL CARBON DIOXIDE 27.4 MMOL/L (24-32); TOTAL PROTEIN 6.4 G/DL (6.4-8.2); eGFR 58 ML/MIN
[2018-05-03] MEDS: furosemide 20 MG/2 ML vial IV SCH (07:34)
[2018-05-03] MEDS: lactobacillus rhamnosus 10,000 MMU CELLS/CAPSULE PO SCH ×2 (07:35→19:52)
[2018-05-03] MEDS: metoprolol succinate 25mg (24-HOUR) SR. Tablet PO SCH ×2 (07:35→19:53)
[2018-05-03] MEDS: aspirin 325mg tablet PO SCH (07:35)
[2018-05-03] MEDS: diltiazem CD 120mg capsule (once-daily) PO SCH (07:35)
[2018-05-03] MEDS: prednisone 10mg tablet PO SCH (07:35)
[2018-05-03] MEDS: fluticasone nasal spray 16GM bottle NS SCH ×2 (07:36→19:53)
[2018-05-03] MEDS: CefTRIAXone/D5W-Rocephin 1gm 50 ML IV SCH (07:36)
[2018-05-03] MEDS: heparin, porcine 5000 units/ml vial SQ SCH ×2 (07:36→19:54)
[2018-05-03] MEDS: insulin glargine (Lantus) pen - multi-dose SQ SCH ×2 (07:56→20:49)
[2018-05-03] MEDS: insulin Lispro (HumaLOG) vial - multi-dose SQ SCH ×2 (07:56→18:50)
[2018-05-03] MEDS: K and/or MAG REPLACEMENT MC SCH (08:00)
[2018-05-03] MEDS: budesonide 0.5mg/2ml UD nebule IH SCH ×2 (09:28→20:16)
[2018-05-03 10:18] LABS: EOSINOPHILS % (MANUAL) 0.5 % (0-6); LYMPHOCYTES % (MANUAL) 9.5 % (21-51); MONOCYTES % (MANUAL) 5.5 % (2-12); MYELOCYTES % (MANUAL) 0.5 % (0-0); PLATELET ESTIMATE NORMAL; TOTAL CELLS COUNTED 200
[2018-05-03] MEDS: dextrose ORAL solution 15 GM/59 ML bottle PO PRN (11:59)
[2018-05-03 12:30] VITALS: BP 106/75
[2018-05-03 13:38] LABS: BASOPHILS # (AUTO) 0.1 X10'3 (0-0.2); BASOPHILS % (AUTO) 0.3 % (0-1); EOSINOPHILS % (AUTO) 0.1 % (0-6); HEMATOCRIT 40.5 % (42.0-52.0); HEMOGLOBIN 13.6 g/dl (14.0-17.9); LYMPHOCYTES # (AUTO) 1.2 X10'3 (1.1-4.8); LYMPHOCYTES % (AUTO) 5.9 % (21-51); MEAN CORPUSCULAR HEMOGLOBIN 30.7 PG (27.0-31.0); MEAN CORPUSCULAR HGB CONC 33.7 % (33.0-36.5); MEAN CORPUSCULAR VOLUME 91.2 FL (78-98); MEAN PLATELET VOLUME 7.5 FL (7.4-10.4); MONOCYTES # (AUTO) 0.5 X10'3 (0-0.9); MONOCYTES % (AUTO) 2.3 % (2-12); NEUTROPHILS # (AUTO) 18.9 X10'3 (1.8-7.7); NEUTROPHILS % (AUTO) 91.4 % (42-75); PLATELET COUNT 422 X10'3 (140-440); RED BLOOD COUNT 4.44 X10'6 (4.70-6.10); RED CELL DISTRIBUTION WIDTH 13.9 % (11.5-14.5); WHITE BLOOD COUNT 20.7 X10'3 (4.5-11.0)
[2018-05-03 13:48] LABS: ALBUMIN 2.5 G/DL (3.4-5.0); ANION GAP 7 (8-16); BLOOD UREA NITROGEN 38 MG/DL (7-18); BUN/CREATININE RATIO 29.5 (5.4-32.0); CALCIUM 7.8 MG/DL (8.5-10.1); CHLORIDE 92 MMOL/L (99-107); CREATININE 1.29 MG/DL (0.60-1.10); GLUCOSE 259 MG/DL (70-104); POTASSIUM 4.4 MMOL/L (3.5-5.1); SODIUM 128 MMOL/L (135-145); TOTAL CARBON DIOXIDE 29.2 MMOL/L (24-32); eGFR 54 ML/MIN
[2018-05-03 15:52] VITALS: BP 111/69
--- NOTE | 2018-05-03 15:53 | NUR ---
Reassessment: Pt on Lasix for heart failure and A. Fib with RVR improved per MD progress notes. Documented PO intake 100% on heart healthy CHO controlled diet meeting nutrient needs. LBM 05/01, pt currently with no routine bowel care. Will continue to follow. Rec: 1. continue current carb controlled/heart healthy diet 2. monitor need for additional bowel care 3. wt per rx Addendum: 05/03/18 at [address] Amended: Links added.
[2018-05-03] MEDS ORDERED: Melatonin 3mg tablet PO PRN (17:15)
--- NOTE | 2018-05-03 18:23 | NUR ---
Problems reprioritized. Patient report given, questions answered & plan of care reviewed with Arthur PAYAN.
--- NOTE | 2018-05-03 18:24 | NUR ---
Patient in room PCU 3014. I have received report from SHAYLA PAYAN and had the opportunity to ask questions and assume patient care.
[2018-05-03] MEDS: furosemide 20MG tablet PO SCH (20:45)
[2018-05-03 23:00] VITALS: BP 112/74
[2018-05-04 00:35] VITALS: BP 100/72
--- NOTE | 2018-05-04 00:35 | NUR ---
C/O LIGHTHEADED, FN=270/72 PULSE=91, RESP=18, SAT= 95% @ 1L/NC.
--- NOTE | 2018-05-04 01:00 | NUR ---
PT. STATES FEELS BETTER, NOT LIGHTHEADED.
[2018-05-04 03:00] VITALS: BP 111/63
[2018-05-04] MEDS: ipratropium/albuterol 3ml nebule IH SCH ×2 (03:16→09:36)
[2018-05-04 06:00] VITALS: BP 95/65
--- NOTE | 2018-05-04 06:25 | NUR ---
Problems reprioritized. Patient report given, questions answered & plan of care reviewed with CRUZ PAYAN.
[2018-05-04 07:03] LABS: ALBUMIN 2.7 G/DL (3.4-5.0); ANION GAP 9 (8-16); BLOOD UREA NITROGEN 33 MG/DL (7-18); BUN/CREATININE RATIO 31.1 (5.4-32.0); CALCIUM 8.1 MG/DL (8.5-10.1); CHLORIDE 93 MMOL/L (99-107); CREATININE 1.06 MG/DL (0.60-1.10); GLUCOSE 158 MG/DL (70-104); POTASSIUM 3.7 MMOL/L (3.5-5.1); SODIUM 130 MMOL/L (135-145); TOTAL CARBON DIOXIDE 28.5 MMOL/L (24-32); eGFR 68 ML/MIN
[2018-05-04] MEDS: metoprolol succinate 25mg (24-HOUR) SR. Tablet PO SCH (08:00)
[2018-05-04] MEDS: diltiazem CD 120mg capsule (once-daily) PO SCH (08:00)
[2018-05-04] MEDS: K and/or MAG REPLACEMENT MC SCH (08:00)
[2018-05-04] MEDS: furosemide 20MG tablet PO SCH (08:06)
[2018-05-04] MEDS: aspirin 325mg tablet PO SCH (08:07)
[2018-05-04] MEDS: lactobacillus rhamnosus 10,000 MMU CELLS/CAPSULE PO SCH (08:08)
[2018-05-04] MEDS: fluticasone nasal spray 16GM bottle NS SCH (08:10)
[2018-05-04] MEDS: insulin glargine (Lantus) pen - multi-dose SQ SCH (08:15)
[2018-05-04] MEDS: insulin Lispro (HumaLOG) vial - multi-dose SQ SCH (08:17)
[2018-05-04] MEDS ORDERED: predniSONE 20 mg tablet PO SCH (08:30)
[2018-05-04] MEDS: heparin, porcine 5000 units/ml vial SQ SCH (08:31)
[2018-05-04] MEDS: CefTRIAXone/D5W-Rocephin 1gm 50 ML IV SCH (08:32)
[2018-05-04] MEDS: budesonide 0.5mg/2ml UD nebule IH SCH (09:36)
[2018-05-04 09:53] LABS: BASOPHILS # (AUTO) 0.1 X10'3 (0-0.2); BASOPHILS % (AUTO) 0.7 % (0-1); EOSINOPHILS # (AUTO) 0.1 X10'3 (0-0.9); EOSINOPHILS % (AUTO) 0.7 % (0-6); HEMATOCRIT 40.8 % (42.0-52.0); HEMOGLOBIN 13.6 g/dl (14.0-17.9); LYMPHOCYTES # (AUTO) 2.5 X10'3 (1.1-4.8); LYMPHOCYTES % (AUTO) 13.4 % (21-51); MEAN CORPUSCULAR HEMOGLOBIN 30.7 PG (27.0-31.0); MEAN CORPUSCULAR HGB CONC 33.4 % (33.0-36.5); MEAN PLATELET VOLUME 7.8 FL (7.4-10.4); MONOCYTES # (AUTO) 0.5 X10'3 (0-0.9); MONOCYTES % (AUTO) 2.9 % (2-12); NEUTROPHILS # (AUTO) 15.2 X10'3 (1.8-7.7); NEUTROPHILS % (AUTO) 82.3 % (42-75); PLATELET COUNT 373 X10'3 (140-440); RED BLOOD COUNT 4.44 X10'6 (4.70-6.10); RED CELL DISTRIBUTION WIDTH 13.8 % (11.5-14.5); WHITE BLOOD COUNT 18.5 X10'3 (4.5-11.0)
[2018-05-04] MEDS ORDERED: FURO20TA4 PO (11:55)
[2018-05-04] MEDS ORDERED: AMOX-422 PO (11:55)
[2018-05-04] MEDS ORDERED: METO-395 PO (11:55)
== END 2018-05-04 13:00 | disposition home health service (06) | DRG 291 ==
LOC: ER 15:12 → ED HOLD 17:13 → EDBEDREQ 18:22 → PCU 3S 19:04
PROVIDERS: ADMIT Internal Medicine; ATTEND Internal Medicine
DX: I50.43 Acute on chronic combined systolic (congestive) and diastolic (congestive) heart failure (principal); E43 Unspecified severe protein-calorie malnutrition; E87.1 Hypo-osmolality and hyponatremia; J44.1 Chronic obstructive pulmonary disease with (acute) exacerbation; I48.91 Unspecified atrial fibrillation; E11.9 Type 2 diabetes mellitus without complications; G47.00 Insomnia, unspecified; G47.33 Obstructive sleep apnea (adult) (pediatric); Z66 Do not resuscitate; T38.0X5A Adverse effect of glucocorticoids and synthetic analogues, initial encounter; Z88.6 Allergy status to analgesic agent; Z88.2 Allergy status to sulfonamides; Z88.1 Allergy status to other antibiotic agents; Z88.8 Allergy status to other drugs, medicaments and biological substances; Z79.82 Long term (current) use of aspirin; Z79.4 Long term (current) use of insulin; Z79.84 Long term (current) use of oral hypoglycemic drugs; Z86.73 Personal history of transient ischemic attack (TIA), and cerebral infarction without residual deficits; Z68.30 Body mass index [BMI] 30.0-30.9, adult
CPT/HCPCS: 36415; 71045; 80048; 80053; 80061; 81001; 82948; 83036; 83735; 83880; 84484; 85025; 87070; 93005; 93308; 94640; 94760; 96374; 99285; G0378; J0696; J1644; J1815; J1940; J2930; J3490; J7512; J7626